=== PATIENT | female | born 1995 | race African-American/Black ===

== ENCOUNTER 2017-08-20 07:34 | Day surgery (SDC) | payer OTHER ==
[~2017-08-20 07:34] MED LIST: SURGICEL HEMOSTAT 4X8 EACH.; ceFAZolin 2GM PREMIX 2 GM/50 ML BAG IV
[2017-08-20] MEDS ORDERED: PROPOFOL 20 ML IV (07:57)
[2017-08-20] MEDS ORDERED: ROCURONIUM 50 MG/5 ML VIAL. (07:57)
[2017-08-20] MEDS ORDERED: fentaNYL PF VIAL 100 MCG/2 ML VIAL ×3 (07:57→09:51)
[2017-08-20] MEDS ORDERED: SUCCINYLCHOLINE 200 MG/10 ML VIAL. (07:57)
[2017-08-20 08:18] LABS: U PREG PATIENT NEGATIVE (NEG)
[2017-08-20 08:19] LABS: NEG OBC UR NEG; POS OBC UR POS
[2017-08-20] MEDS: IV RINGERS,LACTATED 1000ML 1,000 ML IV ×2 (08:29→10:15)
[2017-08-20] MEDS ORDERED: LIDOCAINE 1% PF 2 ML VIAL. ID (08:30)
[2017-08-20] MEDS ORDERED: fentaNYL PF VIAL 100 MCG/2 ML VIAL IV (08:30)
[2017-08-20] MEDS ORDERED: MORPHINE SULFATE 4 MG/ML DISP.SYRIN. IV (08:30)
[2017-08-20] MEDS ORDERED: ONDANSETRON PF 4 MG/2 ML VIAL. IV (08:30)
[2017-08-20] MEDS ORDERED: DESFLURANE 61 TO 120 MINUTES IH (08:51)
[2017-08-20] MEDS ORDERED: DEXAMETHASONE SOD PHOS 20 MG/5 ML VIAL. (08:51)
[2017-08-20] MEDS ORDERED: GLYCOPYRROLATE 1 MG/5 ML VIAL. (09:05)
[2017-08-20] MEDS ORDERED: ONDANSETRON PF 4 MG/2 ML VIAL. (09:05)
[2017-08-20] MEDS ORDERED: NEOSTIGMINE 10 MG/10 ML VIAL. (09:05)
[2017-08-20] MEDS ORDERED: KETOROLAC 30 MG/ML INJ FOR OR. INJ ×2 (09:21→09:40)
[2017-08-20] MEDS: BUPIVAC MPF-EPI 0.5%-1:200000 30 ML VIAL. INJ (09:45)
[2017-08-20] MEDS: IOHEXOL 300 MG/ML 100ML VIAL. (09:46)
[2017-08-20] MEDS: fentaNYL PF VIAL 100 MCG/2 ML VIAL IV ×3 (10:14→10:59)
[2017-08-20] MEDS: PROCHLORPERAZINE 10 MG/2 ML VIAL. IV ×2 (10:14→10:58)
[2017-08-20] MEDS: oxyCODONE/APAP 5/325 1 TAB TABLET PO (11:00)
== END 2017-08-20 12:12 | disposition home or self-care (01) ==
LOC: SURG 07:34
DX: K80.10 Calculus of gallbladder with chronic cholecystitis without obstruction (principal); Z68.35 Body mass index [BMI] 35.0-35.9, adult; F10.99 Alcohol use, unspecified with unspecified alcohol-induced disorder
CPT/HCPCS: 47563; 74300; 81025; C1769; J0330; J0690; J0780; J1100; J1885; J2405; J2704; J2710; J3010; J3490; J7030; J7120; Q9967